=== PATIENT | female | born 1995 ===

== ENCOUNTER 2017-06-01 18:42 | Emergency (ER) | payer MEDICAID ==
[2017-06-01 18:53] VITALS: BP 115/65; PULSE 74; RESP 18; TEMP 98; O2SAT 100
--- NOTE | 2017-06-01 19:18 | ED PDOC ---
HPI: General Adult Chief Complaint (Nursing): Dizziness/Lightheaded Chief Complaint (Provider): Patient wants to know if she's History Per: Patient History/Exam Limitations: no limitations Additional Complaint(s): Cecily Michel, a 21 year old male, presents to the ED for a test. Past Medical History Reviewed: Historical Data, Nursing Documentation, Vital Signs Vital Signs: Last Vital Signs Temp 98.0 F 06/01/17 18:48 Pulse 74 06/01/17 18:48 Resp 18 06/01/17 18:48 BP 115/65 06/01/17 18:48 Pulse Ox 100 06/01/17 19:20 - Medical History PMH: Asthma, Migraine - Surgical History Surgical History: (x1) - Family History Family History: States: Unknown Family Hx - Immunization History Hx Tetanus Toxoid Vaccination: No Hx Influenza Vaccination: Yes Hx Pneumococcal Vaccination: No - Home Medications Home Medications: Ambulatory Orders Medication Instructions Recorded Acetaminophen/Butalbital/Caf 1 tab PO TID PRN #20 tab 10/30/15 [Fioricet] Albuterol 2 puff PO Q6 PRN 10/30/15 Patient Own Control 1 unit PO DAILY 10/30/15 Benzonatate [Tessalon Perles] 100 mg PO TID #12 sgl 12/22/16 predniSONE [predniSONE Tab] 60 mg PO DAILY #9 tab 12/22/16 Multivit/Folic Acid/I 1 tab PO DAILY #90 tab 06/01/17 [ Plus] - Allergies Allergies/Adverse Reactions: Allergies Allergy/AdvReac Type Severity Reaction Status Date / Time aripiprazole [From Abilify] Allergy SWELLING Verified 10/17/16 20:10 FISH Allergy SWELLING Verified 10/17/16 20:10 naproxen sodium [From Aleve] Allergy SWELLING Verified 10/17/16 20:10 Review of Systems Constitutional: Negative for: Fever, Chills Physical Exam - Reviewed Nursing Documentation Reviewed: Yes Vital Signs Reviewed: Yes - Physical Exam Appears: Positive for: Non-toxic, No Acute Distress Head Exam: Positive for: ATRAUMATIC, NORMAL INSPECTION, NORMOCEPHALIC Skin: Positive for: Normal Color, Warm, Dry Eye Exam: Positive for: Normal appearance, EOMI, PERRL ENT: Positive for: Normal ENT Inspection Neurologic/Psych: Positive for: Alert, Oriented, Gait - ECG O2 Sat by Pulse Oximetry: 100 (RA) Pulse Ox Interpretation: Normal Medical Decision Making Medical Decision Making: Initial Impression: 21 year old female presenting for test Initial Plan: * Upreg = (+) Rx Vit and advised to have obgyn f.u * Reevaluation Scribe Attestation Documented by Eve Mendiola acting as a scribe for Tara Bender PA-C. MD Scribe Attestation All medical record entries made by the Scribe were at my direction and personally dictated by me. I have reviewed the chart and agree that the record accurately reflects my personal performance of the history, physical exam, medical decision making, and the department course for this patient. I have also personally directed, reviewed, and agree with the discharge instructions and disposition. Disposition - Clinical Impression Clinical Impression: - Patient ED Disposition Is Patient to be Admitted: No - Disposition [facility] Disposition: Routine/Home Disposition Time: 19:33 Condition: STABLE Prescriptions: Multivit/Folic Acid/I [ Plus] 1 tab PO DAILY #90 tab Instructions: (ED) Forms: [employer] (Maori), [facility] ED School/Work Excuse
== END 2017-06-01 19:45 | disposition home or self-care (01) ==
LOC: H.ER 18:42
DX: Z32.01 Encounter for pregnancy test, result positive (principal)

== ENCOUNTER 2017-06-25 21:09 | Emergency (ER) | payer MEDICAID ==
[2017-06-25 21:18] VITALS: TEMP 98.4; O2SAT 100
[2017-06-25] MEDS ORDERED: Albuterol-Ipratrop 3 mg / 0.5 (3 ml) UD INH STA (21:32)
[2017-06-25] MEDS ORDERED: Albuterol-Ipratrop 3 mg / 0.5 (3 ml) UD ONE (21:41)
--- NOTE | 2017-06-25 22:09 | ED PDOC ---
HPI: CCC, URI, Sore Throat Time Seen by Provider: 06/25/17 21:21 Chief Complaint (Nursing): GI Problem Chief Complaint (Provider): cough History Per: Patient History/Exam Limitations: no limitations Onset/Duration Of Symptoms: Days (x2) Current Symptoms Are (Timing): Still Present Additional Complaint(s): Cecily Michel is a 21 year old female, currently 9 weeks , who presents to the emergency department with a complaint of productive cough with green phlegm associated with vomiting, upper abdominal pain and subjective fever ongoing for 2 days. Denied any chest pain or shortness of breath. Patient stated symptoms are similar to an asthmatic episode in the past. PMD: Mary Castle MD Past Medical History Reviewed: Historical Data, Nursing Documentation, Vital Signs Vital Signs: Last Vital Signs Temp 98.4 F 06/25/17 21:15 Pulse 88 06/25/17 21:15 Resp 16 06/25/17 21:15 BP 128/72 06/25/17 21:15 Pulse Ox 100 06/25/17 23:18 - Medical History PMH: Asthma, Migraine - Surgical History Surgical History: (x1) - Family History Family History: States: Unknown Family Hx - Social History Current smoker - smoking cessation education provided: No Alcohol: None Drugs: Denies - Immunization History Hx Tetanus Toxoid Vaccination: No Hx Influenza Vaccination: Yes Hx Pneumococcal Vaccination: No - Home Medications Home Medications: Ambulatory Orders Medication Instructions Recorded Acetaminophen/Butalbital/Caf 1 tab PO TID PRN #20 tab 10/30/15 [Fioricet] Albuterol 2 puff PO Q6 PRN 10/30/15 Patient Own Control 1 unit PO DAILY 10/30/15 Benzonatate [Tessalon Perles] 100 mg PO TID #12 sgl 12/22/16 predniSONE [predniSONE Tab] 60 mg PO DAILY #9 tab 12/22/16 Multivit/Folic Acid/I 1 tab PO DAILY #90 tab 06/01/17 [ Plus] Albuterol 0.083% [Albuterol 0.083% 3 ml IH Q6H PRN #30 neb 06/25/17 Inhal Beronica (2.5 mg/3 ml) UD] Albuterol HFA [Ventolin HFA 90 2 puff IH [id number] PRN #1 bottle 06/25/17 mcg/actuation (8 g)] Azithromycin [Zithromax] 250 mg PO DAILY #4 tab 06/25/17 - Allergies Allergies/Adverse Reactions: Allergies Allergy/AdvReac Type Severity Reaction Status Date / Time aripiprazole [From Abilify] Allergy SWELLING Verified 10/17/16 20:10 shellfish derived Allergy SWELLING Verified 06/25/17 21:15 Review of Systems ROS Statement: Except As Marked, All Systems Reviewed And Found Negative Constitutional: Positive for: Fever (subjective) Cardiovascular: Negative for: Chest Pain Respiratory: Positive for: Cough, Sputum (green). Negative for: Shortness of Breath Gastrointestinal: Positive for: Vomiting, Abdominal Pain (upper) Physical Exam - Reviewed Nursing Documentation Reviewed: Yes Vital Signs Reviewed: Yes - Physical Exam Appears: Positive for: Well, Non-toxic, No Acute Distress Head Exam: Positive for: ATRAUMATIC, NORMAL INSPECTION, NORMOCEPHALIC Neck: Positive for: Normal, Painless ROM, Supple Cardiovascular/Chest: Positive for: Regular Rate, Rhythm. Negative for: Chest Non Tender Respiratory: Positive for: Normal Breath Sounds. Negative for: Crackles, Rales , Rhonchi, Wheezing, Respiratory Distress Gastrointestinal/Abdominal: Positive for: Normal Exam, Bowel Sounds, Soft. 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 Risks and benefits were discussed with patient. Time: 2319 Pt reports feeling much better. Pt is stable for discharge home with prescriptions for albuterol, zithromax and instructions to follow up with her PCP in 1-2 days. Scribe Attestation: Documented by Christelle Schmidt and Luna Khan, acting as scribes for Jessenia Kitchen MD. Provider Scribe Attestation: All medical record entries made by the Scribe were at my direction and personally dictated by me. I have reviewed the chart and agree that the record accurately reflects my personal performance of the history, physical exam, medical decision making, and the department course for this patient. I have also personally directed, reviewed, and agree with the discharge instructions and disposition. Disposition - Clinical Impression Clinical Impression: Cough - Disposition Referrals: [facility] [Outside] Disposition: Routine/Home Disposition Time: 23:20 Condition: STABLE Prescriptions: Albuterol HFA [Ventolin HFA 90 mcg/actuation (8 g)] 2 puff IH [id number] PRN #1 bottle PRN Reason: Shortness Of Breath Albuterol 0.083% [Albuterol 0.083% Inhal Beronica (2.5 mg/3 ml) UD] 3 ml IH Q6H PRN # 30 neb PRN Reason: Shortness Of Breath Azithromycin [Zithromax] 250 mg PO DAILY #4 tab Instructions: Acute Cough (ED) Forms: [employer] (Yi) Print Language: PERSIAN
[2017-06-26 00:11] VITALS: BP 122/74; PULSE 78; RESP 18
== END 2017-06-25 23:35 | disposition home or self-care (01) ==
LOC: H.ER 21:09
DX: R05 Cough (principal); O99.511 Diseases of the respiratory system complicating pregnancy, first trimester; Z3A.09 9 weeks gestation of pregnancy; O26.891 Other specified pregnancy related conditions, first trimester